=== PATIENT | female | born 1975 | race Caucasian/White ===

== ENCOUNTER 2017-02-08 10:03 | Emergency (ER) | payer BC ==
[2017-02-08 12:51] VITALS: BP 116/62
--- NOTE | 2017-02-08 13:30 | UC ---
Respiratory Complaint HPI - HPI Summary HPI Summary: ONSET OF COUGH AND CONGESTION YESTERDAY. HAS MILD EAR PAIN AND ST WITH COUGH. HAS HAD STREP EXPOSURE IN [place] [employer] [facility]. DENIES FEVER. - History of Current Complaint Chief Complaint: UCRespiratory Stated Complaint: COUGH LEGS HURT Time Seen by Provider: 02/08/17 13:24 Hx Obtained From: Patient Hx Last Menstrual Period: 02/02/17 Onset/Duration: Gradual Onset, Lasting Days - 1 DAY, Still Present Timing: Constant Severity Initially: Moderate Severity Currently: Moderate Character: Cough: Nonproductive Aggravating Factors: Nothing Alleviating Factors: Nothing Associated Signs And Symptoms: Positive: URI, Nasal Congestion. Negative: Dyspnea, Fever - Allergies/Home Medications Allergies/Adverse Reactions: Allergies Allergy/AdvReac Type Severity Reaction Status Date / Time Penicillins Allergy Mild Rash Verified 02/08/17 12:51 Home Medications: Home Medications [id number] [Excedrin Extra Strength 250-250-65 mg] 2 tab PO 02/08/17 [History] PMH/Surg Hx/FS Hx/Imm Hx Psychological History: Depression - Surgical History Surgical History: Yes Surgery Procedure, Year, and Place: wrist cyst- "early ". L knee surgery 1997 - Family History Known Family History: Positive: Hypertension - Social History Alcohol Use: None Substance Use Type: None Smoking Status (MU): Never Smoked Tobacco Have You Smoked in the Last Year: No - Immunization History Most Recent Influenza Vaccination: 2017 Review of Systems Constitutional: Negative ENT: Sore Throat, Ear Ache Respiratory: Cough Cardiovascular: Negative Gastrointestinal: Negative All Other Systems Reviewed And Are Negative: Yes Physical Exam Triage Information Reviewed: Yes Appearance: Well-Appearing, No Pain Distress, Well-Nourished Vital Signs: Initial Vital Signs Temp 99.2 F 02/08/17 12:47 Pulse 81 02/08/17 12:47 Resp 14 02/08/17 12:47 BP 116/62 02/08/17 12:47 Pulse Ox 100 02/08/17 12:47 Vital Signs Reviewed: Yes Eyes: Positive: Conjunctiva Clear ENT: Positive: Hearing grossly normal, Pharynx normal, TMs normal. Negative: Pharyngeal erythema, Tonsillar swelling, Tonsillar exudate, Hoarse voice Neck: Positive: Supple, Nontender, No Lymphadenopathy Respiratory: Positive: Lungs clear, No respiratory distress, No accessory muscle use, Other: - INTERMITTENT COUGH DURING ENCOUNTER Cardiovascular Exam: Normal Abdomen Description: Positive: Soft Musculoskeletal: Positive: No Edema Neurological: Positive: Alert Psychological: Positive: Age Appropriate Behavior Skin: Negative: rashes UC Diagnostic Evaluation - Laboratory O2 Sat by Pulse Oximetry: 100 Diagnostic Studies Comment: RAPID STREP POSITIVE Respiratory Course/Dx - Differential Dx/Diagnosis Provider Diagnoses: STREP PHARYNGITIS/ACUTE URI Discharge - Discharge Plan Condition: Stable Disposition: HOME Prescriptions: Azithromycin [Azithromycin 500 MG TAB] 500 mg PO DAILY #5 tab Patient Education Materials: Strep Throat (ED), Upper Respiratory Infection (ED ) Referrals: Eleni Barry MD [Primary Care Provider] - If Needed Additional Instructions: STREP TEST POSITIVE. OTC CHLORASEPTIC OR CEPACOL LOZENGES AND/OR IBUPROFEN FOR SORE THROAT NEEDED ONCE SYMPTOMS RESOLVED - NEW TOOTHBRUSH DO NOT SHARE FOOD, DRINK, UTENSILS
== END 2017-02-08 14:04 | disposition home or self-care (01) ==
LOC: UCEAST 10:03
DX: J02.0 Streptococcal pharyngitis (principal); Z88.0 Allergy status to penicillin
CPT/HCPCS: 87651; 99212; G0463